=== PATIENT | female | born 1945 | race Two or more races ===

== ENCOUNTER 2019-02-14 19:41 | Inpatient (IN) | payer MEDICARE, BC ==
[~2019-02-14] VITALS: Ht 160 cm; Wt 72.6 kg
[2019-02-14] MEDS ORDERED: ENALAPRIL MALE2.5 MG ORAL (19:50)
[2019-02-14] MEDS ORDERED: NEXIUM20 MG ORAL (19:50)
[2019-02-14] MEDS ORDERED: LIPITOR80 MG ORAL (19:50)
--- NOTE | 2019-02-14 19:56 | Emergency Room Report ---
History of Present Illness General Chief Complaint: Lower Extremity Injury Source: Patient Present Illness HPI Patient reports that she was mopping earlier when she had a slip and fall Presents with increased pain to the right knee patient has had Multiple interventions to that knee previously including total knee replacement denies any ankle pain denies any hip pain Denies any chest pain or shortness of breath and provides fairly specific mechanical-type fall Allergies: Coded Allergies: No Known Allergies (Unverified , 02/14/19) Patient History Past Medical History: see triage record Pertinent Family History: none Last Menstrual Period: RORY Now: No Reviewed Nursing Documentation: PMH: Agreed; PSxH: Agreed Nursing Documentation-PMH Past Medical History: No History, Except For Hx Hypertension: Yes Review of Systems All Other Systems: negative except mentioned in HPI Physical Exam Vital Signs Date Time Temp Pulse Resp B/P (MAP) Pulse Ox O2 Delivery O2 Flow Rate FiO2 02/14/19 19:43 97.9 64 18 159/86 96 Room Air Sp02 EP Interpretation: reviewed, normal General Appearance: well appearing, no apparent distress Head: normocephalic, atraumatic Eyes: bilateral eye PERRL, bilateral eye EOMI ENT: normal pharynx Neck: supple Respiratory: lungs clear, no retraction, no accessory muscle use Cardiovascular #1: regular rate, rhythm Gastrointestinal: non tender, soft Musculoskeletal: swelling - And discomfort to the right knee, neurovascularly intact, nontender at the ankle or the hip area Neurologic: alert, oriented x3, responsive Skin: other - Swelling in the right knee Lymphatic: no adenopathy Procedures Splinting Splinting : Consent: Emergent Location: Right knee Pre-Made Type: knee immobilizer Pre-Proc Neuro Vasc Exam: normal Post-Proc Neuro Vasc Exam: normal Patient Tolerated: Well Complications: None Medical Decision Making Diagnostic Impression: Primary Impression: Femur fracture, right ER Course Multiple differentials and consideration Patient's imaging study does show distal right-sided femoral fracture This is concerning especially given the patient's comorbidities Extensive blood work initiated Patient requires further inpatient orthopedic consultation Labs Test 02/14/19 22:45 02/15/19 00:00 02/15/19 05:19 White Blood Count 13.3 K/UL (4.8-10.8) 5.5 K/UL (4.8-10.8) Red Blood Count 4.86 M/UL (4.20-5.40) 4.21 M/UL (4.20-5.40) Hemoglobin 15.1 G/DL (12.0-16.0) 13.2 G/DL (12.0-16.0) Hematocrit 43.6 % (37.0-47.0) 38.6 % (37.0-47.0) Mean Corpuscular Volume 90 FL (80-99) 92 FL (80-99) Mean Corpuscular Hemoglobin 31.2 PG (27.0-31.0) 31.5 PG (27.0-31.0) Mean Corpuscular Hemoglobin Concent 34.7 G/DL (32.0-36.0) 34.3 G/DL (32.0-36.0) Red Cell Distribution Width 11.2 % (11.6-14.8) 11.5 % (11.6-14.8) Platelet Count 196 K/UL (150-450) 160 K/UL (150-450) Mean Platelet Volume 8.5 FL (6.5-10.1) 10.4 FL (6.5-10.1) Neutrophils (%) (Auto) 79.8 % (45.0-75.0) 80.5 % (45.0-75.0) Lymphocytes (%) (Auto) 14.5 % (20.0-45.0) 13.7 % (20.0-45.0) Monocytes (%) (Auto) 4.6 % (1.0-10.0) 5.1 % (1.0-10.0) Eosinophils (%) (Auto) 0.4 % (0.0-3.0) 0.1 % (0.0-3.0) Basophils (%) (Auto) 0.7 % (0.0-2.0) 0.6 % (0.0-2.0) Prothrombin Time 10.2 SEC (9.30-11.50) Prothromb Time International Ratio 1.0 (0.9-1.1) Activated Partial Thromboplast Time 25 SEC (23-33) Sodium Level 137 MMOL/L (136-145) 136 MMOL/L (136-145) Potassium Level 4.1 MMOL/L (3.5-5.1) 4.0 MMOL/L (3.5-5.1) Chloride Level 101 MMOL/L (98-107) 100 MMOL/L (98-107) Carbon Dioxide Level 27 MMOL/L (21-32) 26 MMOL/L (21-32) Anion Gap 10 mmol/L (5-15) 10 mmol/L (5-15) Blood Urea Nitrogen 25 mg/dL (7-18) 21 mg/dL (7-18) Creatinine 0.7 MG/DL (0.55-1.30) 0.6 MG/DL (0.55-1.30) Estimat Glomerular Filtration Rate mL/min (>60) mL/min (>60) Glucose Level 123 MG/DL (74-106) 168 MG/DL (74-106) Calcium Level 9.4 MG/DL (8.5-10.1) 8.2 MG/DL (8.5-10.1) Total Bilirubin 0.2 MG/DL (0.2-1.0) Aspartate Amino Transf (AST/SGOT) 27 U/L (15-37) Alanine Aminotransferase (ALT/SGPT) 42 U/L (12-78) Alkaline Phosphatase 97 U/L (46-116) Total Creatine Kinase 115 U/L (26-308) Creatine Kinase MB 1.2 NG/ML (0.0-3.6) Creatine Kinase MB Relative Index 1.0 Troponin I 0.000 ng/mL (0.000-0.056) Total Protein 7.7 G/DL (6.4-8.2) Albumin 3.7 G/DL (3.4-5.0) Globulin 4.0 g/dL Albumin/Globulin Ratio 0.9 (1.0-2.7) Urine Color Pale yellow Urine Appearance Clear Urine pH 5 (4.5-8.0) Urine Specific [place] 1.030 (1.005-1.035) Urine Protein Negative (NEGATIVE) Urine Glucose (UA) Negative (NEGATIVE) Urine Ketones 1+ (NEGATIVE) Urine Blood 1+ (NEGATIVE) Urine Nitrite Negative (NEGATIVE) Urine Bilirubin Negative (NEGATIVE) Urine Urobilinogen Normal MG/DL (0.0-1.0) Urine Leukocyte Esterase 1+ (NEGATIVE) Urine RBC 0-2 /HPF (0 - 2) Urine WBC 0-2 /HPF (0 - 2) Urine Squamous Epithelial Cells Few /LPF (NONE/OCC) Urine Bacteria Few /HPF (NONE) Rhythm Strip Diag. Results EP Interpretation: yes Rate: 78 Rhythm: NSR, no PVC's, no ectopy Chest X-Ray Diagnostic Results Chest X-Ray Diagnostic Results : Chest X-Ray Ordered: Yes # of Views/Limited/Complete: 1 View Indication: Chest Pain EP Interpretation: Yes Interpretation: no consolidation, no pneumothorax Impression: No acute disease - Cardiomegaly Electronically Signed by: Nasreen Ashton DO Other X-Ray Diagnostic Results Other X-Ray Diagnostic Results : X-Ray ordered: Right knee # of Views/Limited Vs Complete: 3 View Indication: Pain EP Interpretation: Yes Interpretation: no soft tissue swelling, other - Distal femoral fracture, comminuted Impression: Other - Distal femoral fracture Electronically Signed by: Nasreen Ashton DO Last Vital Signs Date Time Temp Pulse Resp B/P (MAP) Pulse Ox O2 Delivery O2 Flow Rate FiO2 02/14/19 19:43 97.9 64 18 159/86 96 Room Air Status: improved Disposition: ADMITTED INPATIENT Condition: Serious Nasreen Ashton DO Feb 14, 2019 19:56
[2019-02-14] MEDS ORDERED: Ketorolac 60mg Inj IM ONE (20:00)
[2019-02-14] MEDS ORDERED: Tylenol #3 tab (300mg/30mg) ORAL ONE (20:00)
[2019-02-14] MEDS ORDERED: Morphine Sulfate 2mg/ml Inj(IV/IM USE ONLY) IVP ONE (22:30)
[2019-02-14 23:05] LABS: BASOPHILS % (AUTO) 0.7 % (0.0-2.0); EOSINOPHILS % (AUTO) 0.4 % (0.0-3.0); HEMATOCRIT 43.6 % (37.0-47.0); HEMOGLOBIN 15.1 G/DL (12.0-16.0); LYMPHOCYTES % (AUTO) 14.5 % (20.0-45.0); MEAN CORPUSCULAR VOLUME 90 FL (80-99); MONOCYTES % (AUTO) 4.6 % (1.0-10.0); NEUTROPHILS % (AUTO) 79.8 % (45.0-75.0); PLATELET COUNT 196 K/UL (150-450); RED BLOOD COUNT 4.86 M/UL (4.20-5.40); RED CELL DISTRIBUTION WIDTH 11.2 % (11.6-14.8); WHITE BLOOD COUNT 13.3 K/UL (4.8-10.8)
[2019-02-14 23:14] LABS: ANION GAP 10 mmol/L (5-15); BLOOD UREA NITROGEN 25 mg/dL (7-18); CALCIUM 9.4 MG/DL (8.5-10.1); CARBON DIOXIDE 27 MMOL/L (21-32); CHLORIDE 101 MMOL/L (98-107); CREATININE 0.7 MG/DL (0.55-1.30); POTASSIUM 4.1 MMOL/L (3.5-5.1); SODIUM 137 MMOL/L (136-145)
[2019-02-14 23:28] LABS: ALANINE AMINOTRANSFERASE 42 U/L (12-78); ALBUMIN 3.7 G/DL (3.4-5.0); ALBUMIN/GLOBULIN RATIO 0.9 (1.0-2.7); ALKALINE PHOSPHATASE 97 U/L (46-116); ASPARTATE AMINO TRANSFERASE 27 U/L (15-37); BILIRUBIN,TOTAL 0.2 MG/DL (0.2-1.0); CKMB 1.2 NG/ML (0.0-3.6); CREATINE KINASE 115 U/L (26-308)
[2019-02-15] VITALS (17 sets, daily range): BP systolic 96–150; BP diastolic 51–71
[2019-02-15 00:17] LABS: APPEARANCE,URINE CLEAR; BILIRUBIN, URINE NEGATIVE (NEGATIVE); COLOR,URINE PALE YELLOW; GLUCOSE, URINE (UA) NEGATIVE (NEGATIVE); KETONES,URINE 1+ (NEGATIVE); LEUKOCYTE ESTERASE ,URINE 1+ (NEGATIVE); NITRITE,URINE NEGATIVE (NEGATIVE); PH,URINE 5 (4.5-8.0); PROTEIN,URINE NEGATIVE (NEGATIVE); UROBILINOGEN,URINE NORMAL MG/DL (0.0-1.0)
[2019-02-15] MEDS ORDERED: FERROUS SULFAT325 MG ORAL (00:53)
[2019-02-15] MEDS ORDERED: MAGNESIUM100 MG PO (00:53)
[2019-02-15] MEDS ORDERED: ASPIRIN81 MG ORAL (00:53)
[2019-02-15] MEDS: Morphine Sulfate 4mg/ml Inj (IV USE ONLY) IVP PRN ×2 (05:25→13:59)
[2019-02-15 06:19] LABS: BASOPHILS % (AUTO) 0.6 % (0.0-2.0); EOSINOPHILS % (AUTO) 0.1 % (0.0-3.0); HEMATOCRIT 38.6 % (37.0-47.0); HEMOGLOBIN 13.2 G/DL (12.0-16.0); LYMPHOCYTES % (AUTO) 13.7 % (20.0-45.0); MEAN CORPUSCULAR VOLUME 92 FL (80-99); MONOCYTES % (AUTO) 5.1 % (1.0-10.0); NEUTROPHILS % (AUTO) 80.5 % (45.0-75.0); PLATELET COUNT 160 K/UL (150-450); RED BLOOD COUNT 4.21 M/UL (4.20-5.40); RED CELL DISTRIBUTION WIDTH 11.5 % (11.6-14.8); WHITE BLOOD COUNT 5.5 K/UL (4.8-10.8)
[2019-02-15 06:29] LABS: ANION GAP 10 mmol/L (5-15); BLOOD UREA NITROGEN 21 mg/dL (7-18); CALCIUM 8.2 MG/DL (8.5-10.1); CARBON DIOXIDE 26 MMOL/L (21-32); CHLORIDE 100 MMOL/L (98-107); CREATININE 0.6 MG/DL (0.55-1.30); SODIUM 136 MMOL/L (136-145)
--- NOTE | 2019-02-15 09:17 | Cardiology Progress Note ---
Assessment/Plan Assessment/Plan The patient is seen and examined, full cardiology consult note will be dictated. Objective Last 24 Hour Vital Signs Date Time Temp Pulse Resp B/P (MAP) Pulse Ox O2 Delivery O2 Flow Rate FiO2 02/15/19 05:55 98.0 02/15/19 04:00 98.0 70 18 115/57 (76) 95 02/15/19 00:10 Room Air 02/15/19 00:10 97.2 67 18 150/66 (94) 96 02/15/19 00:00 97.8 69 18 137/82 96 Room Air 02/14/19 20:29 97.8 02/14/19 20:28 97.8 02/14/19 20:28 97.8 02/14/19 19:43 97.9 64 18 159/86 96 Room Air Intake and Output 02/14/19 02/15/19 19:00 07:00 Intake Total 920 ml Balance 920 ml Intake Oral 0 ml IV Total 920 ml # Voids 1 Laboratory Tests Test 02/14/19 22:45 02/15/19 00:00 02/15/19 05:19 White Blood Count 13.3 K/UL (4.8-10.8) H 5.5 K/UL (4.8-10.8) # Red Blood Count 4.86 M/UL (4.20-5.40) 4.21 M/UL (4.20-5.40) Hemoglobin 15.1 G/DL (12.0-16.0) 13.2 G/DL (12.0-16.0) Hematocrit 43.6 % (37.0-47.0) 38.6 % (37.0-47.0) Mean Corpuscular Volume 90 FL (80-99) 92 FL (80-99) Mean Corpuscular Hemoglobin 31.2 PG (27.0-31.0) H 31.5 PG (27.0-31.0) H Mean Corpuscular Hemoglobin Concent 34.7 G/DL (32.0-36.0) 34.3 G/DL (32.0-36.0) Red Cell Distribution Width 11.2 % (11.6-14.8) L 11.5 % (11.6-14.8) L Platelet Count 196 K/UL (150-450) 160 K/UL (150-450) Mean Platelet Volume 8.5 FL (6.5-10.1) 10.4 FL (6.5-10.1) H Neutrophils (%) (Auto) 79.8 % (45.0-75.0) H 80.5 % (45.0-75.0) H Lymphocytes (%) (Auto) 14.5 % (20.0-45.0) L 13.7 % (20.0-45.0) L Monocytes (%) (Auto) 4.6 % (1.0-10.0) 5.1 % (1.0-10.0) Eosinophils (%) (Auto) 0.4 % (0.0-3.0) 0.1 % (0.0-3.0) Basophils (%) (Auto) 0.7 % (0.0-2.0) 0.6 % (0.0-2.0) Prothrombin Time 10.2 SEC (9.30-11.50) Prothromb Time International Ratio 1.0 (0.9-1.1) Activated Partial Thromboplast Time 25 SEC (23-33) Sodium Level 137 MMOL/L (136-145) 136 MMOL/L (136-145) Potassium Level 4.1 MMOL/L (3.5-5.1) 4.0 MMOL/L (3.5-5.1) Chloride Level 101 MMOL/L (98-107) 100 MMOL/L (98-107) Carbon Dioxide Level 27 MMOL/L (21-32) 26 MMOL/L (21-32) Anion Gap 10 mmol/L (5-15) 10 mmol/L (5-15) Blood Urea Nitrogen 25 mg/dL (7-18) H 21 mg/dL (7-18) H Creatinine 0.7 MG/DL (0.55-1.30) 0.6 MG/DL (0.55-1.30) Estimat Glomerular Filtration Rate mL/min (>60) mL/min (>60) Glucose Level 123 MG/DL (74-106) H 168 MG/DL (74-106) H Calcium Level 9.4 MG/DL (8.5-10.1) 8.2 MG/DL (8.5-10.1) L Total Bilirubin 0.2 MG/DL (0.2-1.0) Aspartate Amino Transf (AST/SGOT) 27 U/L (15-37) Alanine Aminotransferase (ALT/SGPT) 42 U/L (12-78) Alkaline Phosphatase 97 U/L (46-116) Total Creatine Kinase 115 U/L (26-308) Creatine Kinase MB 1.2 NG/ML (0.0-3.6) Creatine Kinase MB Relative Index 1.0 Troponin I 0.000 ng/mL (0.000-0.056) Total Protein 7.7 G/DL (6.4-8.2) Albumin 3.7 G/DL (3.4-5.0) Globulin 4.0 g/dL Albumin/Globulin Ratio 0.9 (1.0-2.7) L Urine Color Pale yellow Urine Appearance Clear Urine pH 5 (4.5-8.0) Urine Specific [place] 1.030 (1.005-1.035) Urine Protein Negative (NEGATIVE) Urine Glucose (UA) Negative (NEGATIVE) Urine Ketones 1+ (NEGATIVE) H Urine Blood 1+ (NEGATIVE) H Urine Nitrite Negative (NEGATIVE) Urine Bilirubin Negative (NEGATIVE) Urine Urobilinogen Normal MG/DL (0.0-1.0) Urine Leukocyte Esterase 1+ (NEGATIVE) H Urine RBC 0-2 /HPF (0 - 2) Urine WBC 0-2 /HPF (0 - 2) Urine Squamous Epithelial Cells Few /LPF (NONE/OCC) Urine Bacteria Few /HPF (NONE) Kristian Cedillo MD Feb 15, 2019 09:17
--- NOTE | 2019-02-15 10:20 | Diagnostic Imaging Report ---
Indication: Pain status post mechanical fall Technique: Noncontrast CT scan of the right femur was performed utilizing automated exposure control. Axial, sagittal and coronal reformats created. CT dose: Total DLP 802.56 mGycm; CTDI vol 15.26 mGy Comparison: Correlation made to concurrent right knee radiographs Findings: Patient is noted be status post right total knee arthroplasty. Note that significant streak artifact from the remote past hardware somewhat limits evaluation around the knee. There is an acute, comminuted and mildly displaced fracture of the distal shaft of the femur just proximal to the indwelling arthroplasty hardware. There is some mild soft tissue stranding around the fracture. There is no significant soft tissue hematoma. The right hip joint is maintained. IMPRESSION: Acute, comminuted and mildly displaced fracture of the distal shaft of the right femur just proximal to the indwelling knee arthroplasty hardware. The CT scanner at [facility] is accredited by the [employer] and the scans are performed using protocols designed to limit radiation exposure to as low as reasonably achievable to attain images of sufficient resolution adequate for diagnostic evaluation.
--- NOTE | 2019-02-15 11:48 | Diagnostic Imaging Report ---
Indication: Pain status post injury Technique: XRAY Knee 3v R Comparison: None Findings: The patient is status post right total knee arthroplasty. There is no acute, comminuted and displaced fracture of the distal femoral shaft just proximal to the arthroplasty hardware. No additional fracture is appreciated. Impression: Status post right total knee arthroplasty. Acute, comminuted and displaced fracture of the right distal femur just proximal to the arthroplasty hardware.
--- NOTE | 2019-02-15 12:01 | Diagnostic Imaging Report ---
. Indication: Status post pain Technique: XRAY Chest 1v Comparison: None Findings: Heart is enlarged. Nonspecific interstitial prominence is noted. There is minimal linear atelectasis at the right base. There is no pleural effusion or pneumothorax. There are degenerative changes in the spine. Impression: Cardiomegaly. Generalized nonspecific interstitial prominence, possibly chronic. Correlate clinically to exclude mild congestive changes/CHF. Minimal linear atelectasis at the right base.
--- NOTE | 2019-02-15 15:24 | Cardiology Report ---
APPROVED REPORT EXAM: Two-dimensional and M-mode echocardiogram with Doppler and color Doppler. INDICATION PRE-OP M-Mode DIMENSIONS IVSd1.3 (0.7-1.1cm)Left Atrium (MM)3.7 (1.6-4.0cm) LVDd3.5 (3.5-5.6cm)Aortic Root2.8 (2.0-3.7cm) PWd1.2 (0.7-1.1cm)Aortic Cusp Exc.1.8 (1.5-2.0cm) IVSs1.6 cm LVDs2.1 (2.5-4.0cm) PWs1.6 cm Normal left ventricular chamber size, systolic function and wall motion . Left ventricular ejection fraction estimated to be 60%. Mild left ventricular hypertrophy. No evidence of pericardial effusion. Mild left atrial enlargement . Right cardiac chamber sizes are within normal limits . Focal aortic valve sclerosis with adequate cusp excursion. Moderately thickened mitral valve leaflets with normal excursion. Mild mitral annulus and aortic root calcification. Echogenic material noted on posterior mitral valve leaflet . Pulmonic valve not well visualized. IVC at normal size with physiologic collapse . A color flow and spectral Doppler study was performed and revealed: No aortic insufficiency . Mitral diastolic velocities suggest reduced left ventricular relaxation c/w mild LV diastolic dysfunction (Grade I ) Mild mitral regurgitation. Mild to moderate tricuspid regurgitation. Tricuspid systolic velocities suggests peak right ventricular systolic pressure of 39mmHg,consistent with mild pulmonary hypertension . Trace pulmonic regurgitation present .
--- NOTE | 2019-02-15 16:45 | Consultation ---
DATE OF CONSULTATION: 02/15/2019 INFECTIOUS DISEASES CONSULTATION CONSULTING PHYSICIAN: Clark Gomez M.D. PRIMARY ATTENDING PHYSICIAN: Nasreen Nunez M.D. REASON FOR CONSULTATION: Leukocytosis. HISTORY OF PRESENT ILLNESS: This is a 73-year-old female admitted last night. She was mopping the floor and she slipped, has fracture in the right distal femur. She had leukocytosis of 13.3 at the time of admission. Complaining of pain. PAST MEDICAL HISTORY: Hypertension, right knee total replacement. ALLERGIES: No known drug allergy. MEDICATIONS: Protonix, morphine, Tylenol, and Zofran. SOCIAL HISTORY: No history of alcohol, drug abuse, or smoking. She is single and has three children. REVIEW OF SYSTEMS: No fever. No chills. No coughing. No shortness of breath. No nausea. No vomiting. No problem passing urine. PHYSICAL EXAMINATION: VITAL SIGNS: Temperature 97.5, pulse 69, blood pressure 135/71. GENERAL APPEARANCE: No acute distress. HEAD AND NECK: [place] conjunctivae. HEART: S1, S2. Regular. LUNGS: Clear. ABDOMEN: Soft and nontender. EXTREMITY: She has edema in the right knee area. NEUROLOGIC: She is awake, alert, and oriented x3. LABORATORY AND DIAGNOSTIC DATA: Labs today, WBC is 5.5, hemoglobin 13.2, hematocrit 38.6, and platelet 160,000. Sodium 136, potassium 4, chloride 100, bicarbonate 26, BUN 21, creatinine 0.6, glucose 168. Femoral CT scan showed acute comminuted and mildly displaced fracture of the distal shaft of the right femur adjacent to indwelling knee arthroplasty hardware. IMPRESSION: 1. Leukocytosis has resolved. 2. Distal femur fracture. 3. Hypertension. 4. History of total knee replacement. RECOMMENDATION: Observe off the antibiotic. In case of surgery, may use perioperative antibiotic that will be suggested by the surgeon. At the end of my exam, I thank Dr. Nunez for involving me in the care of this patient. Clark Gomez M.D. DR: ODILIA JOB#: [id number] CC: NIKITA
[2019-02-15] MEDS ORDERED: Duramorph PF 5mg/10ml amp ONE (17:36)
[2019-02-15] MEDS ORDERED: Bupivacaine 0.5% Inj 30 ml vial INJ ONE (17:36)
[2019-02-15] MEDS ORDERED: Atropine Sulfate 0.4mg/ml inj IVP PRN (17:45)
[2019-02-15] MEDS ORDERED: LORazepam Inj 2mg/ml 1ml IV PRN (17:45)
[2019-02-15] MEDS ORDERED: HYDROcodone/Acetamin 7.5/325 tab ORAL PRN (17:45)
[2019-02-15] MEDS ORDERED: LR 1000ml 1,000 ML IVLG SCH (17:45)
[2019-02-15] MEDS ORDERED: oxyCODONE HCL/Acetaminophen 5/325mg ORAL PRN (17:45)
[2019-02-15] MEDS ORDERED: Metoclopramide 10mg/2ml Inj IVP PRN (17:45)
[2019-02-15] MEDS ORDERED: Ketorolac 30mg Inj IV PRN ×2 (17:45)
[2019-02-15] MEDS ORDERED: Meperidine 50mg/ml Inj(FOR RIGORS ONLY) IVP PRN (17:45)
[2019-02-15] MEDS ORDERED: HYDROcodone/Acetamin 5/325 tab ORAL PRN (17:45)
[2019-02-15] MEDS ORDERED: Labetalol 5mg/ml 20ml vial IV PRN (17:45)
[2019-02-15] MEDS ORDERED: Hydromorphone 0.5mg/0.5ml inj IVP PRN (17:45)
[2019-02-15] MEDS ORDERED: Midazolam 2mg/2ml Inj IVP PRN (17:45)
[2019-02-15] MEDS ORDERED: DiphenhydrAMINE 50mg/ml Inj IVP PRN (17:45)
[2019-02-15] MEDS ORDERED: fentaNYL 100 mcg/2 mL IV PRN (17:45)
--- NOTE | 2019-02-15 17:48 | Anethesia Preoperative Eval ---
Anesthesia Pre-op PMH/ROS General Date of Evaluation: Feb 15, 2019 Time of Evaluation: 18:13 Anesthesiologist: Steven ASA Score: ASA 3 - Emergency Mallampati Score Class I : Soft palate, uvula, fauces, pillars visible Class II: Soft palate, uvula, fauces visible Class III: Soft palate, base of uvula visible Class IV: Only hard plate visible Mallampati Classification: Class II Surgeon: Casey Diagnosis: Femur Fx R Leg Surgical Procedure: ORIF R Femur Anesthesia History: none Allergies: Coded Allergies: No Known Allergies (Unverified , 02/14/19) Patient NPO?: Yes NPO Date: Feb 15, 2019 NPO Time: 0100 Past Medical History Cardiovascular: Reports: HTN, other - HL Gastrointestinal/Genitourinary: Reports: GERD - Ulcer Neurologic/Psychiatric: Reports: CVA PSxH Narrative: [place], Cholecystectomy, C/S, Bilateral TKR Anesthesia Pre-op Phys. Exam Physician Exam Last Vital Signs Date Time Temp Pulse Resp B/P (MAP) Pulse Ox O2 Delivery O2 Flow Rate FiO2 02/15/19 16:00 98.4 67 18 109/60 (76) 95 02/15/19 09:00 Room Air Constitutional: NAD Neurologic: CN 2-12 intact Cardiovascular: RRR Respiratory: CTA Gastrointestinal: S/NT/ND Airway Exam Mallampati Score: Class II MO: full ROM: full Teeth: missing, intact Anesthesia Pre-op A/P Labs Hematology Test 02/14/19 22:45 02/15/19 05:19 White Blood Count 13.3 K/UL (4.8-10.8) H 5.5 K/UL (4.8-10.8) # Red Blood Count 4.86 M/UL (4.20-5.40) 4.21 M/UL (4.20-5.40) Hemoglobin 15.1 G/DL (12.0-16.0) 13.2 G/DL (12.0-16.0) Hematocrit 43.6 % (37.0-47.0) 38.6 % (37.0-47.0) Mean Corpuscular Volume 90 FL (80-99) 92 FL (80-99) Mean Corpuscular Hemoglobin 31.2 PG (27.0-31.0) H 31.5 PG (27.0-31.0) H Mean Corpuscular Hemoglobin Concent 34.7 G/DL (32.0-36.0) 34.3 G/DL (32.0-36.0) Red Cell Distribution Width 11.2 % (11.6-14.8) L 11.5 % (11.6-14.8) L Platelet Count 196 K/UL (150-450) 160 K/UL (150-450) Mean Platelet Volume 8.5 FL (6.5-10.1) 10.4 FL (6.5-10.1) H Neutrophils (%) (Auto) 79.8 % (45.0-75.0) H 80.5 % (45.0-75.0) H Lymphocytes (%) (Auto) 14.5 % (20.0-45.0) L 13.7 % (20.0-45.0) L Monocytes (%) (Auto) 4.6 % (1.0-10.0) 5.1 % (1.0-10.0) Eosinophils (%) (Auto) 0.4 % (0.0-3.0) 0.1 % (0.0-3.0) Basophils (%) (Auto) 0.7 % (0.0-2.0) 0.6 % (0.0-2.0) Coagulation Test 02/14/19 22:45 Prothrombin Time 10.2 SEC (9.30-11.50) Prothromb Time International Ratio 1.0 (0.9-1.1) Activated Partial Thromboplast Time 25 SEC (23-33) Chemistry Test 02/14/19 22:45 02/15/19 05:19 Sodium Level 137 MMOL/L (136-145) 136 MMOL/L (136-145) Potassium Level 4.1 MMOL/L (3.5-5.1) 4.0 MMOL/L (3.5-5.1) Chloride Level 101 MMOL/L (98-107) 100 MMOL/L (98-107) Carbon Dioxide Level 27 MMOL/L (21-32) 26 MMOL/L (21-32) Anion Gap 10 mmol/L (5-15) 10 mmol/L (5-15) Blood Urea Nitrogen 25 mg/dL (7-18) H 21 mg/dL (7-18) H Creatinine 0.7 MG/DL (0.55-1.30) 0.6 MG/DL (0.55-1.30) Estimat Glomerular Filtration Rate mL/min (>60) mL/min (>60) Glucose Level 123 MG/DL (74-106) H 168 MG/DL (74-106) H Calcium Level 9.4 MG/DL (8.5-10.1) 8.2 MG/DL (8.5-10.1) L Total Bilirubin 0.2 MG/DL (0.2-1.0) Aspartate Amino Transf (AST/SGOT) 27 U/L (15-37) Alanine Aminotransferase (ALT/SGPT) 42 U/L (12-78) Alkaline Phosphatase 97 U/L (46-116) Total Creatine Kinase 115 U/L (26-308) Creatine Kinase MB 1.2 NG/ML (0.0-3.6) Creatine Kinase MB Relative Index 1.0 Troponin I 0.000 ng/mL (0.000-0.056) Total Protein 7.7 G/DL (6.4-8.2) Albumin 3.7 G/DL (3.4-5.0) Globulin 4.0 g/dL Albumin/Globulin Ratio 0.9 (1.0-2.7) L Risk Assessment & Plan Assessment: ASA 3E Plan: GA, Spinal, SED Status Change Before Surgery: No Pre-Antibiotics Dru gram Ancef IV Given Within 1 Hr of Incision: Yes Time Given: 18:31 Luis E Harris MD Feb 15, 2019 17:48
[2019-02-15] MEDS ORDERED: LR 1000ml ONE (18:00)
[2019-02-15] MEDS ORDERED: NS Irrig 1000ml ONE (18:00)
[2019-02-15] MEDS ORDERED: Sterile Water Irrig 1000ml IRRIG ONE (18:00)
[2019-02-15] MEDS ORDERED: Propofol 200mg/20ml IV ONE (18:09)
[2019-02-15] MEDS ORDERED: Lidocaine 1% Plain 30 ml INJ ONE (18:09)
[2019-02-15] MEDS ORDERED: EPINEPHrine 1mg/1ml Amp ONE (18:09)
[2019-02-15] MEDS ORDERED: Vancomycin 1gm vial IVPB ONE (18:12)
[2019-02-15] MEDS ORDERED: Bupivacaine w/Epi 0.25% 30ml Vial INJ ONE (18:12)
[2019-02-15] MEDS ORDERED: NeoSporin Gu Irrig 1ml Amp IRRIG ONE (18:13)
[2019-02-15] MEDS ORDERED: Bacitracin 50000 Units Vial ONE (18:13)
[2019-02-15] MEDS ORDERED: Sodium Chloride 10ml vial INJ ONE (18:14)
[2019-02-15] MEDS ORDERED: Dexamethasone 4mg/ml vial ONE (18:14)
--- NOTE | 2019-02-15 18:14 | Immediate Post-Op Evaluation ---
Immediate Post-Op Evalulation Immediate Post-Op Evalulation Procedure: ORFI R Femur Date of Evaluation: Feb 15, 2019 Time of Evaluation: 21:14 IV Fluids: 500 LR Blood Products: 0 Estimated Blood Loss: 100 Urinary Output: 200 Blood Pressure Systolic: 130 Blood Pressure Diastolic: 68 Pulse Rate: 89 Respiratory Rate: 16 O2 Sat by Pulse Oximetry: 100 Temperature (Fahrenheit): 98.2 Pain Score (1-10): 1 Nausea: No Vomiting: No Complications 0 Patient Status: awake, reacts, patent, none Hydration Status: adequate Dru Gram Ancef IV Given Within 1 Hr of Incision: Yes Time Given: 18:31 Luis E Harris MD Feb 15, 2019 18:14
[2019-02-15] MEDS ORDERED: Midazolam 2mg/2ml Inj ONE (18:18)
--- NOTE | 2019-02-15 18:31 | Pre-Procedure Note/Attestation ---
Pre-Procedure Note/Attestation Complete Prior to Procedure Planned Procedure: right Procedure Narrative: femur orif Indications for Procedure Pre-Operative Diagnosis: right femur fracture Attestation I attest that I discussed the nature of the procedure; its benefits; risks and complications; and alternatives (and the risks and benefits of such alternatives ), prior to the procedure, with the patient (or the patient's legal sales representative advertising). I attest that, if there was a reasonable possibility of needing a blood transfusion, the patient (or the patient's legal sales representative advertising) was given the [facility] standardized written summary, pursuant to the Simone Gosia Blood Safety Act ([place] Health and Safety Code # 1645, as amended). I attest that I re-evaluated the patient just prior to the surgery and that there has been no change in the patient's H&P, except as documented below: Shukri Peña MD Feb 15, 2019 18:31
--- NOTE | 2019-02-15 18:32 | Operative Note - PDOC ---
Operative Note Operative Note Pre-op Diagnosis: right femur fracture Procedure: see op report Post-op Diagnosis: same as pre-op plus Operative Findings: consistent w/pre-op dx studies Anesthesia: regional Specimen: none Complications: none Condition: stable Estimated Blood Loss: none Implant(s) used?: Yes Shukri Peña MD Feb 15, 2019 18:32
[2019-02-15] MEDS ORDERED: Tranexamic Acid 1,000 MG in NS 55 ML IVPB ONE (18:45)
[2019-02-15] MEDS ORDERED: oxyCODONE 5mg IR tab ORAL PRN (18:45)
[2019-02-15] MEDS ORDERED: Morphine Sulfate 4mg/ml Inj (IV USE ONLY) IVP PRN (18:45)
[2019-02-15] MEDS ORDERED: Milk of Magnesia 30ml Ud ORAL PRN (18:45)
[2019-02-15] MEDS ORDERED: Morphine Sulfate 2mg/ml Inj(IV/IM USE ONLY) IVP PRN ×2 (18:45)
[2019-02-15] MEDS ORDERED: ePHEDrine 50mg/ml Inj ONE (18:47)
[2019-02-15] MEDS ORDERED: Lidocaine 1% MPF 10mg/ml 5ml ONE (19:54)
[2019-02-15] MEDS ORDERED: Hydrogen Peroxide 473ml Bottle TOPIC ONE (20:48)
[2019-02-15] MEDS ORDERED: LATANOPROST 0.7.5 ML OP (22:15)
[2019-02-15] MEDS ORDERED: SYSTANE 0.3-0.1 EAC2 OP (22:15)
[2019-02-15] MEDS ORDERED: BRIMONIDINE TART5 ML BOTH EYES (22:15)
[2019-02-15] MEDS ORDERED: FOLIC ACID0.8 MG ORAL (22:15)
[2019-02-15] MEDS: D5 1/2NS w/KCl 20mEq 1,000 ML IV SCH (22:29)
[2019-02-15] MEDS: oxyCONTIN 20mg tab ORAL SCH (22:32)
--- NOTE | 2019-02-15 22:45 | Operative Note - Dictated ---
DATE OF OPERATION: 02/15/2019 PREOPERATIVE DIAGNOSIS: Right comminuted distal femur fracture complicated secondary to the presence of total knee arthroplasty. POSTOPERATIVE DIAGNOSIS: Right comminuted distal femur fracture complicated secondary to the presence of total knee arthroplasty. PROCEDURE PERFORMED: Open reduction and internal fixation right distal femur fracture stable knee implant. SURGEON: Shukri Peña M.D. ANESTHESIA: Spinal. INDICATION FOR PROCEDURE: The patient is a pleasant 73-year-old female, who sustained a mechanical fall. She was diagnosed with a right distal femoral fracture. She was indicative of operative fixation. Risks, limitations, expectations, and complications of procedure were discussed with detail. All questions were addressed. DESCRIPTION OF PROCEDURE: After informed consent was obtained, the patient was brought to the operating room. The patient was placed under spinal anesthesia. Left leg was prepped and draped in a sterile manner. Time-out was performed. A standard lateral skin incision was then made. Fascia natalya was incised. The vastus lateralis was exposed out of the lateral femur. Periosteal elevator was then placed in the lateral aspect of the femur. A 10-hole plate was then selected and K-wires were then placed. Once adequate position was confirmed, the cortical screw was then placed in the shaft to bring the shaft down to the plate. Once that was done, it was noted that the implant may have been slightly flexed therefore a periosteal elevator was then placed along the distal femur and superior stress was applied to further reduce the fracture. At this point, multiple screws were placed. This locked the fragment into position. Three locking screws were then placed near the proximal shaft. AP and lateral imaging showed relatively good alignment. On the AP, there was slight translation about 25%. At this point, it was noted to be acceptable. The wound was copiously irrigated. Vancomycin powder was placed in the subfascial layer. The skin was closed using #1 Vicryl suture, 2-0 Vicryl suture, and 3-0 Monocryl sutures. Steri-Strips and a sterile dressing were applied. The patient was awoken and taken to recovery room with stable vital signs. ESTIMATED BLOOD LOSS: 100 mL. COMPLICATIONS: None. SPECIMENS: None. IMPLANTS: Include [place] distal femoral periarticular locking plate with multiple locking cortical screws. Shukri Peña M.D. DR: Criselda JOB#: [id number] CC:
--- NOTE | 2019-02-15 22:45 | Consultation ---
DATE OF CONSULTATION: 02/15/2019 CARDIOLOGY CONSULTATION: CONSULTING PHYSICIAN: Kristian Cedillo M.D. REFERRING PHYSICIAN: Nasreen Nunez M.D. REASON FOR CONSULTATION: Preoperative cardiac clearance for noncardiac surgery. HISTORY OF PRESENT ILLNESS: The patient is a very unfortunate 73-year-old female, who sustained a comminuted fracture distal femur in the right side following a mechanical fall. Apparently, she was mopping floor, had a slip and fall. Had increased pain in the right knee. The patient also had multiple interventions to that knee previously including total knee replacement. She was brought in to [facility] Emergency Department. Initial vital signs was blood pressure 159/86 mmHg and heart rate of 64. In the emergency department, the patient underwent some initial labs, which showed WBC of 13.3, BUN and creatinine 25 and 0.7 respectively. Troponin I level was 0. Cardiovascular history significant for prior history of stroke as well as history of hypertension. PAST MEDICAL HISTORY: Hypertension and prior history of stroke. PAST SURGICAL HISTORY: None. FAMILY HISTORY: No premature coronary artery disease in first-degree relatives. ALLERGIES: No known drug allergies. MEDICATIONS: List of medications at home includes aspirin 81 mg p.o. daily, Lipitor 80 mg p.o. at bedtime, enalapril 2.5 mg twice daily, Nexium 40 mg daily, Pepcid 20 mg p.o. daily, ferrous sulfate 325 mg once daily, magnesium amino acid chelate 100 mg p.o. daily. REVIEW OF SYSTEMS: HEENT: Denies any headache, diplopia, or blurred vision. CONSTITUTIONAL: Denies any fever, chills, night sweats, or weight loss. CARDIOVASCULAR: Denies any chest pain, shortness breath, PND, orthopnea, or leg swelling. PULMONARY: Denies any cough, hemoptysis, or wheezing. GASTROINTESTINAL: Denies any nausea, vomiting, diarrhea, constipation, abdominal pain, or GI bleed. GENITOURINARY: Denies any hematuria, dysuria, or incontinence. NEUROLOGY: Left hemiparesis due to prior stroke. MUSCULOSKELETAL: Right knee pain, status post mechanical fall with no loss of consciousness. SOCIAL HISTORY: Denies any tobacco, alcohol, or illicit drug use. PHYSICAL EXAMINATION: VITAL SIGNS: Blood pressure 159/86, respirations 18, pulse of 64, temperature 97.9 degrees Fahrenheit, O2 saturation 96% on room air. GENERAL: The patient is a very unfortunate 73-year-old lady very pleasant with a family member at the bedside, in no apparent respiratory distress. HEENT: Atraumatic and normocephalic. Anicteric. Left facial droop. Pupils are equal, round, and reactive to light and accommodation. NECK: JVP less than 5 cm. No carotid bruit. Carotid upstrokes 2+ bilaterally. CARDIOVASCULAR: Normal S1 and S2. Regular rate and rhythm. No murmurs, gallops, or rubs. PMI is at fourth intercostal space in the midclavicular line. LUNGS: Clear to auscultation bilaterally. ABDOMEN: Soft, nontender, and nondistended. No hepatosplenomegaly. Positive bowel sounds. EXTREMITIES: No evidence of edema, clubbing, or cyanosis. Right knee is swollen. IMAGIND echocardiography showed normal LV systolic function with LVEF of 60%, grade 1 LV diastolic dysfunction with mild mitral regurgitation, and mild pulmonary hypertension with RVSP of 39 mmHg. ASSESSMENT AND PLAN: The patient is a very unfortunate 73-year-old lady who is seen in Cardiology consultation. According to the patient's family member prior to this event, the patient was active and was capable of tolerating workload of more than 4 METS, doing her usual activities with no limitations. The patient's 12-lead electrocardiogram did not show any active ischemic changes. 2D echocardiography is significant for normal LV systolic function with no wall motion abnormalities. The patient is cleared for orthopedic surgery, which is right knee ORIF and considered to be intermediate risk surgery with the risk of coronary artery events preoperatively estimated to be less than 1%. We will continue to follow the patient in the postoperative period. At this time, I would like to continue aspirin and statins given prior history of CVA. I would like to thank Dr. Nunez for the courtesy of this consultation. Kristian Cedillo M.D. DR: ALISTAIR JOB#: [id number] CC:
--- NOTE | 2019-02-15 23:45 | Consultation ---
DATE OF CONSULTATION: 02/14/2019 ORTHOPEDIC CONSULTATION CONSULTING PHYSICIAN: Shukri Peña M.D. CHIEF COMPLAINT: Distal right thigh pain. HISTORY OF PRESENT ILLNESS: This is a 73-year-old female who fall. She was diagnosed with a right distal femur fracture. Therefore, she was admitted. Orthopedic consultation was obtained for further care and recommendation. The patient denies any chest pain or shortness of breath. PAST MEDICAL HISTORY: Reviewed per intake chart. SURGICAL HISTORY: Reviewed per intake chart. MEDICATIONS: Reviewed per intake chart. PHYSICAL EXAMINATION: Shows a posterior splint in place. The patient has obvious deformity along the right lower leg. Posterior calf is soft. DIAGNOSTIC DATA: Imaging studies showed comminuted periarticular fracture along with well-cemented total knee implant. ASSESSMENT: Right periprosthetic distal femur fracture. DISCUSSION: At this point, recommend is to make her NPO in anticipation of surgery tomorrow for operative fixation. Risks, limitations, expectations, and complications of procedure were discussed in detail including continued pain, need for future surgery, nonunion, malunion, infection, risk of anesthesia, medical complications. All questions were addressed. We will proceed with surgery which is scheduled tomorrow if she is medically optimized. Shukri Peña M.D. DR: JERALD JOB#: [id number] CC:
[2019-02-16] VITALS (7 sets, daily range): BP systolic 110–128; BP diastolic 53–77
[2019-02-16] MEDS: ceFAZolin sod 2 GM in D5W 110 ML IV SCH ×2 (02:32→10:38)
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
[2019-02-16] MEDS: D5 1/2NS w/KCl 20mEq 1,000 ML IV SCH ×2 (09:20→18:09)
[2019-02-16] MEDS: Docusate 100mg cap ORAL SCH ×3 (09:33→18:01)
[2019-02-16] MEDS: oxyCONTIN 20mg tab ORAL SCH ×2 (09:35→21:29)
[2019-02-16] MEDS ORDERED: Docusate 100mg cap ORAL SCH (10:34)
--- NOTE | 2019-02-16 12:32 | 48 Hour Post Anesthesia Eval ---
Post Anesthesia Evaluation Procedure: ORFI R Femur Date of Evaluation: Feb 16, 2019 Time of Evaluation: 12:31 Blood Pressure Systolic: 135 0: 78 Pulse Rate: 64 Respiratory Rate: 20 Temperature (Fahrenheit): 97.6 O2 Sat by Pulse Oximetry: 97 Airway: patent Nausea: No Vomiting: No Pain Intensity: 3 Hydration Status: adequate Cardiopulmonary Status: stable Mental Status/LOC: patient returned to baseline Follow-up Care/Observations: n/a Post-Anesthesia Complications: none Follow-up care needed: N/A Santi Prieto MD Feb 16, 2019 12:32
--- NOTE | 2019-02-16 13:49 | Infectious Diseases Prog Note ---
Assessment/Plan Assessment/Plan IMPRESSION: 1. Leukocytosis has resolved. 2. Distal femur fracture. 3. Hypertension. 4. History of total knee replacement. RECOMMENDATION: Observe off the antibiotic Subjective ROS Limited/Unobtainable: No Respiratory: Reports: no symptoms Gastrointestinal/Abdominal: Reports: no symptoms Genitourinary: Reports: no symptoms Musculoskeletal: Reports: pain, other - had ORIF of R femur yesterday, ambulatory with walker today Allergies: Coded Allergies: No Known Allergies (Unverified , 02/14/19) Objective Vital Signs Last 24 Hour Vital Signs Date Time Temp Pulse Resp B/P (MAP) Pulse Ox O2 Delivery O2 Flow Rate FiO2 02/16/19 12:32 64 20 97 02/16/19 09:00 Nasal Cannula 3.0 02/16/19 08:00 98.6 17 128/77 (94) 97 02/16/19 04:00 98.8 85 18 128/73 (91) 98 02/16/19 01:00 70 18 118/53 (74) 95 02/16/19 00:00 97.6 75 18 116/63 (80) 100 02/15/19 23:30 73 18 124/62 (82) 95 02/15/19 23:00 82 18 96/51 (66) 90 02/15/19 22:30 83 18 130/64 (86) 97 02/15/19 22:15 71 18 121/60 (80) 96 02/15/19 22:00 75 18 127/71 (89) 97 02/15/19 21:45 Nasal Cannula 3.0 02/15/19 21:45 97.4 76 18 143/71 (95) 97 02/15/19 21:45 98.0 70 22 129/65 100 Nasal Cannula 3 02/15/19 21:30 71 22 131/65 100 Nasal Cannula 3 02/15/19 21:20 75 14 128/62 100 Nasal Cannula 3 02/15/19 21:13 72 19 115/65 100 Nasal Cannula 3 02/15/19 21:08 82 16 129/66 100 Nasal Cannula 3 02/15/19 21:03 98.2 84 12 130/68 100 Simple Mask 6 02/15/19 20:59 89 16 100 02/15/19 16:00 98.4 67 18 109/60 (76) 95 02/15/19 14:29 97.8 Height (Feet): 5 Height (Inches): 3.00 Weight (Pounds): 160 General Appearance: no acute distress HEENT: mucous membranes moist Respiratory/Chest: lungs clear Cardiovascular: normal rate Abdomen: soft, non tender Extremities: no edema Neurologic/Psychiatric: alert, oriented x 3, responsive Current Medications Medications (Trade) Dose Ordered Sig/Timmy Route PRN Reason Start Time Stop Time Status Last Admin Dose Admin Acetaminophen (Tylenol) 650 mg Q4H PRN ORAL Mild Pain/Temp > 100.5 02/15/19 00:30 03/17/19 00:29 Dextrose/ Electrolytes 1,000 ml @ 75 mls/hr [id number] IV 02/15/19 20:00 03/17/19 19:59 02/15/19 22:29 Docusate Sodium (Colace) 100 mg THREE TIMES A DAY ORAL 02/16/19 09:00 03/18/19 08:59 02/16/19 09:33 Magnesium Hydroxide (Mom) 30 ml DAILYPRN PRN ORAL Constipation 02/15/19 18:45 03/17/19 18:44 Morphine Sulfate (Morphine Sulfate) 1 mg Q3H PRN IVP Pain scale 1-3 02/15/19 18:45 02/22/19 18:44 Morphine Sulfate (Morphine Sulfate) 2 mg Q3H PRN IVP Moderate Pain (Pain Scale 4-6) 02/15/19 18:45 02/22/19 18:44 Morphine Sulfate (Morphine Sulfate) 4 mg Q3H PRN IVP Severe Pain (Pain Scale 7-10) 02/15/19 18:45 02/22/19 18:44 Ondansetron HCl (Zofran) 4 mg Q6H PRN IVP Nausea & Vomiting 02/15/19 18:45 03/17/19 18:44 02/16/19 10:38 Oxycodone HCl (OxyCONTIN) 20 mg EVERY 12 HOURS ORAL 02/15/19 21:00 02/22/19 20:59 02/16/19 09:35 Oxycodone HCl (Roxicodone) 5 mg Q4H PRN ORAL Breakthrough Pain 02/15/19 18:45 02/22/19 18:44 Pantoprazole (Protonix) 40 mg DAILY ORAL 4/17/19 09:00 03/17/19 08:59 02/16/19 09:32 Temazepam (Restoril) 7.5 mg DAILYPRN PRN ORAL Insomnia 02/15/19 18:45 02/22/19 18:44 Clark Gomez MD Feb 16, 2019 13:49
--- NOTE | 2019-02-16 16:28 | Diagnostic Imaging Report ---
Indication: Pain, fracture Technique: 4 intraoperative fluoroscopic images Physician: Nasreen Nunez MD Total fluoroscopy time 96.2 Total fluoroscopy dose 6.55 mGy Findings: Intraoperative fluoroscopic images submitted for archival the PACS. Initial image demonstrates a comminuted and mildly displaced fracture of the distal femur just proximal to the indwelling knee arthroplasty hardware. Subsequent images demonstrate fixation of this fracture by means of the lateral plate affixed by multiple screws. There is apparent persistent mild displacement after surgical fixation of this may be exaggerated by nonstandard views/obliquity. A left knee arthroplasty is partially imaged on the final more lateral image. Impression: Fluoroscopic imaging from orthopedic surgery. Please see operative report.
[2019-02-16] MEDS ORDERED: Latanoprost 0.005% Opth 2.5ml Soln BOTH EYES SCH (21:00)
[2019-02-16] MEDS: Brimonidine 0.2% Opth Sol BOTH EYES SCH (21:26)
--- NOTE | 2019-02-16 21:58 | General Progress Note ---
Assessment/Plan Problem List: (1) Injury of lower extremity ICD Codes: S89.90XA - Unspecified injury of unspecified lower leg, initial encounter SNOMED: 740435999 (2) Femur fracture, right ICD Codes: S72.91XA - Unspecified fracture of right femur, initial encounter for closed fracture SNOMED: 72359278 Status: progressing Assessment: afebrile s/p orif of le fracture will need snf for pt /ot Subjective ROS Limited/Unobtainable: Yes Allergies: Coded Allergies: No Known Allergies (Unverified , 02/14/19) Objective Last 24 Hour Vital Signs Date Time Temp Pulse Resp B/P (MAP) Pulse Ox O2 Delivery O2 Flow Rate FiO2 02/16/19 20:00 99.3 79 18 122/53 (76) 96 02/16/19 16:00 98.0 74 16 123/56 (78) 02/16/19 12:32 64 20 97 02/16/19 12:00 98.8 74 16 110/61 (77) 02/16/19 09:00 Nasal Cannula 3.0 02/16/19 08:00 98.6 17 128/77 (94) 97 02/16/19 04:00 98.8 85 18 128/73 (91) 98 02/16/19 01:00 70 18 118/53 (74) 95 02/16/19 00:00 97.6 75 18 116/63 (80) 100 02/15/19 23:30 73 18 124/62 (82) 95 02/15/19 23:00 82 18 96/51 (66) 90 02/15/19 22:30 83 18 130/64 (86) 97 02/15/19 22:15 71 18 121/60 (80) 96 02/15/19 22:00 75 18 127/71 (89) 97 Intake and Output 02/15/19 02/16/19 19:00 07:00 Intake Total 630 ml 1410.0 ml Output Total 750 ml Balance 630 ml 660.0 ml IV Total 630 ml 1410.0 ml Output Urine Total 650 ml Estimated Blood Loss 100 ml # Voids 2 Height (Feet): 5 Height (Inches): 3.00 Weight (Pounds): 160 Neck: supple Cardiovascular: normal rate Respiratory/Chest: lungs clear Abdomen: soft Nasreen Nunez MD Feb 16, 2019 21:58
[2019-02-17] VITALS: BP 96/73
[2019-02-17 04:00] VITALS: BP 133/64
[2019-02-17 08:00] VITALS: BP 120/54
[2019-02-17] MEDS: oxyCONTIN 20mg tab ORAL SCH (08:41)
[2019-02-17] MEDS: Docusate 100mg cap ORAL SCH ×2 (08:41→12:37)
[2019-02-17] MEDS: Brimonidine 0.2% Opth Sol BOTH EYES SCH (09:13)
[2019-02-17 12:00] VITALS: BP 121/65
--- NOTE | 2019-02-17 12:44 | Infectious Diseases Prog Note ---
Assessment/Plan Assessment/Plan IMPRESSION: 1. Leukocytosis has resolved. 2. Distal femur fracture. 3. Hypertension. 4. History of total knee replacement. RECOMMENDATION: Observe off the antibiotic Subjective ROS Limited/Unobtainable: Yes Constitutional: Reports: no symptoms Respiratory: Reports: no symptoms Gastrointestinal/Abdominal: Reports: no symptoms Genitourinary: Reports: no symptoms Allergies: Coded Allergies: No Known Allergies (Unverified , 02/14/19) Objective Vital Signs Last 24 Hour Vital Signs Date Time Temp Pulse Resp B/P (MAP) Pulse Ox O2 Delivery O2 Flow Rate FiO2 02/17/19 12:00 98.8 88 17 121/65 (83) 98 02/17/19 09:00 Room Air 02/17/19 08:00 99.7 87 17 120/54 (76) 96 02/17/19 04:00 99.8 86 18 133/64 (87) 95 02/17/19 00:00 99.3 75 18 96/73 (81) 96 02/16/19 21:00 Room Air 02/16/19 20:00 99.3 79 18 122/53 (76) 96 02/16/19 16:00 98.0 74 16 123/56 (78) Height (Feet): 5 Height (Inches): 3.00 Weight (Pounds): 160 General Appearance: no acute distress HEENT: mucous membranes moist Respiratory/Chest: lungs clear Cardiovascular: normal rate Abdomen: soft, non tender Extremities: other - R knee dressing Neurologic/Psychiatric: alert, responsive Current Medications Medications (Trade) Dose Ordered Sig/Timmy Route PRN Reason Start Time Stop Time Status Last Admin Dose Admin Acetaminophen (Tylenol) 650 mg Q4H PRN ORAL Mild Pain/Temp > 100.5 02/15/19 00:30 03/17/19 00:29 02/16/19 18:02 Brimonidine Tartrate (Alphagan) 1 drop DAILY BOTH EYES 02/16/19 18:30 03/18/19 18:29 02/17/19 09:13 Docusate Sodium (Colace) 100 mg THREE TIMES A DAY ORAL 02/16/19 09:00 03/18/19 08:59 02/17/19 12:37 Latanoprost (Xalatan) 1 drop BEDTIME BOTH EYES 02/16/19 21:00 03/18/19 20:59 02/16/19 21:26 Magnesium Hydroxide (Mom) 30 ml DAILYPRN PRN ORAL Constipation 02/15/19 18:45 03/17/19 18:44 02/16/19 18:08 Morphine Sulfate (Morphine Sulfate) 1 mg Q3H PRN IVP Pain scale 1-3 02/15/19 18:45 02/22/19 18:44 Morphine Sulfate (Morphine Sulfate) 2 mg Q3H PRN IVP Moderate Pain (Pain Scale 4-6) 02/15/19 18:45 02/22/19 18:44 02/16/19 13:48 Morphine Sulfate (Morphine Sulfate) 4 mg Q3H PRN IVP Severe Pain (Pain Scale 7-10) 02/15/19 18:45 02/22/19 18:44 02/17/19 07:39 Ondansetron HCl (Zofran) 4 mg Q6H PRN IVP Nausea & Vomiting 02/15/19 18:45 03/17/19 18:44 02/16/19 10:38 Oxycodone HCl (OxyCONTIN) 20 mg EVERY 12 HOURS ORAL 02/15/19 21:00 02/22/19 20:59 02/17/19 08:41 Oxycodone HCl (Roxicodone) 5 mg Q4H PRN ORAL Breakthrough Pain 02/15/19 18:45 02/22/19 18:44 Pantoprazole (Protonix) 40 mg DAILY ORAL 02/15/19 09:00 03/17/19 08:59 02/17/19 08:41 Temazepam (Restoril) 7.5 mg DAILYPRN PRN ORAL Insomnia 02/15/19 18:45 02/22/19 18:44 Clark Gomez MD Feb 17, 2019 12:44
[2019-02-17] MEDS ORDERED: TYLENOL325 MG ORAL (12:49)
[2019-02-17] MEDS ORDERED: COLACE100 MG ORAL (12:50)
[2019-02-17] MEDS ORDERED: BRIMONIDINE TART5 ML BOTH EYES (12:50)
[2019-02-17] MEDS ORDERED: LATANOPROST2.5 ML BOTH EYES (12:51)
[2019-02-17] MEDS ORDERED: OXYCONTIN20 MG ORAL (12:52)
[2019-02-17] MEDS ORDERED: MILK OF MA400 MG/51 ORAL (12:52)
[2019-02-17] MEDS ORDERED: OXYCODONE HCL5 MG ORAL (12:53)
[2019-02-17] MEDS ORDERED: TEMAZEPAM7.5 MG ORAL (12:54)
[2019-02-17] MEDS ORDERED: PANTOPRAZOLE SO40 MG ORAL (12:54)
--- NOTE | 2019-02-17 13:20 | Cardiology Report ---
APPROVED REPORT EKG Measurement Heart [id number] Normal sinus rhythm Possible Left atrial enlargement Borderline ECG
[2019-02-17] MEDS ORDERED: Tubing IV Secondary IV ONE (14:54)
--- NOTE | 2019-02-17 23:58 | Cardiology Progress Note ---
Assessment/Plan Assessment/Plan 1. s/p ORIF of the distal femur, no perioperative cardiac events, continue DVT prophylaxis, pain control. 2, Hx of HTN. 3. Hx of CVA. Subjective Subjective No cardiac events. s/p ORIF, postop #2 Objective Last 24 Hour Vital Signs Date Time Temp Pulse Resp B/P (MAP) Pulse Ox O2 Delivery O2 Flow Rate FiO2 02/17/19 12:00 98.8 88 17 121/65 (83) 98 02/17/19 09:15 Room Air 02/17/19 09:00 Room Air 02/17/19 08:00 99.7 87 17 120/54 (76) 96 02/17/19 04:00 99.8 86 18 133/64 (87) 95 02/17/19 00:00 99.3 75 18 96/73 (81) 96 Intake and Output 02/16/19 02/17/19 19:00 07:00 Intake Total 1450 ml 900 ml Output Total 1500 ml Balance 1450 ml -600 ml Intake Oral 1000 ml IV Total 450 ml 900 ml Output Urine Total 1500 ml # Voids 1 CXR: reviewed 2D Echo: LVEF 60%, Mild LVH, RVSP 39 mmHg, Mild MR. Objective HEENT: Atraumatic and normocephalic. Anicteric. Left facial droop. Pupils are equal, round, and reactive to light and accommodation. NECK: JVP less than 5 cm. No carotid bruit. Carotid upstrokes 2+ bilaterally. CARDIOVASCULAR: Normal S1 and S2. Regular rate and rhythm. No murmurs, gallops, or rubs. PMI is at fourth intercostal space in the midclavicular line. LUNGS: Clear to auscultation bilaterally. ABDOMEN: Soft, nontender, and nondistended. No hepatosplenomegaly. Positive bowel sounds. EXTREMITIES: No evidence of edema, clubbing, or cyanosis. Right knee is swollen. Kristian Cedillo MD Feb 17, 2019 23:58
--- NOTE | 2019-02-18 10:42 | Discharge Summary ---
Discharge Summary Discharge Summary _ DATE OF ADMISSION: 02/14/2019 DATE OF DISCHARGE: 02/17/2019 DISCHARGED BY: Dr Nunez REASON FOR ADMISSION: 73 years old female with past medical history of CVA, hypertension, bilateral knee replacement, hypercholesterolemia ,presented after slip and fall , while she was mopping the floor. Patient reported increased pain to the right knee. She denied ankle and hip pain. Patient denied chest pain and shortness of breath. Upon evaluation vital signs were stable. Laboratory workup revealed leukocytosis WBC 13.3, stable hemoglobin and hematocrit. Stable coagulation profile. Stable electrolytes and renal parameters. Glucose 123 9. Stable LFT. Troponin negative. EKG revealed normal sinus rhythm, no acute ischemic changes. Urinalysis revealed no evidence of UTI. X-ray of the right knee revealed acute comminuted and displaced fracture of the distal right femur, just proximal to the arthroplasty hardware. Chest x-ray showed nonspecific interstitial prominence, possibly chronic. Minimal atelectasis at the right base. CT scan of the right femur revealed acute comminuted and mildly displaced fracture of the distal shaft of the right femur, just proximal to the indwelling knee arthroplasty hardware. In emergency room patient was provided with analgesia and admitted to medical surgical floor for further management. CONSULTANTS: art critic Dr. Ritchie JASMINE specialist Dr. Olivera orthopedic surgery Dr. Peña [facility] COURSE: Patient started on IV hydration pain management was addressed. Orthopedic surgery consult was requested. Patient subsequently was seen by orthopedic surgeon and explained that she required surgery. Cardiology clearance was requested prior to surgery. Echocardiogram revealed preserved ejection fraction of 60% with no evidence of wall motion abnormality. Mild left ventricular hypertrophy. No evidence of pericardial effusion. Mild to moderate tricuspid regurgitation. Right ventricular systolic pressure of 39 consistent with mild pulmonary hypertension. Optics Engineer cleared patient for orthopedic surgery. Patient subsequently undergone open reduction and internal fixation of right distal femur fracture. Course of recovery was uneventful. Pain management was addressed. Wound care provided. Patient was working with physical therapist. Fall precaution maintained. Postoperative hip precautions maintained. Infectious disease specialist followed. Initial mild leukocytosis resolved, likely was reactive. No evidence of infection. Infectious disease specialist recommended to observe patient off antibiotics. Bowel regimen instituted. GI prophylaxis provided. Blood pressure was closely monitored and remained stable. Patient clinically stabilized. Patient required further inpatient rehabilitation as per physical therapy recommendation. Placement was arranged to the long-term facility for skilled PT services. Patient subsequently was transferred to [facility]. Patient and family were in agreement with transfer. FINAL DIAGNOSES: Right comminuted distal femur fracture, complicated secondary to presence of total knee arthroplasty Status post open reduction and internal fixation right distal femur fracture Hypertension Leukocytosis resolved History of right total knee replacement DISCHARGE MEDICATIONS: See Medication Reconciliation list. DISCHARGE INSTRUCTIONS: Patient was discharged to the long-term facility. Follow up with medical doctor at the facility. I have been assigned to dictate discharge summary for this account. I was not involved in the patient's management. Nikole Fernandez NP Feb 18, 2019 10:42
== END 2019-02-17 14:55 | DRG 481 ==
LOC: EDBD 19:41 → EMR 20:15 → 3E 22:31 → EDBEDREQ 22:42
PROC: 0QSB04Z Reposition Right Lower Femur with Internal Fixation Device, Open Approach (ICD-10-PCS; principal; 2019-02-15 18:00)
DX: S72.401A Unspecified fracture of lower end of right femur, initial encounter for closed fracture (principal); M97.11XA Periprosthetic fracture around internal prosthetic right knee joint, initial encounter; W01.0XXA Fall on same level from slipping, tripping and stumbling without subsequent striking against object, initial encounter; I10 Essential (primary) hypertension; Z86.73 Personal history of transient ischemic attack (TIA), and cerebral infarction without residual deficits; I27.20 Pulmonary hypertension, unspecified; I36.1 Nonrheumatic tricuspid (valve) insufficiency; I34.0 Nonrheumatic mitral (valve) insufficiency
CPT/HCPCS: 29505; 36415; 71045; 76000; 80048; 80053; 81003; 82550; 82553; 84484; 85025; 85610; 85730; 93005; 93306; 94003; 94150; 96372; 96374; 99285; J2250; J2405